=== PATIENT | male | born 1965 | race Hispanic/Latino ===

== ENCOUNTER 2020-07-21 22:15 | Inpatient (IN) | payer OTHER ==
[~2020-07-21] VITALS: Ht 170.2 cm; Wt 93.7 kg
[2020-07-21] MEDS ORDERED: IOHEXOL 350 MG/ML 100ML INFUS..BTL IV ONE (22:19)
[2020-07-21 22:26] LABS: BASOPHILS % (AUTO) 0.4 % (0.0-5.0); EOSINOPHILS % (AUTO) 0.8 % (0.0-8.0); HEMATOCRIT 45.8 % (42-54); LYMPHOCYTES % (AUTO) 28.8 % (21.0-51.0); MEAN CORPUSCULAR HEMOGLOBIN 30.4 pg (27.0-33.0); MEAN CORPUSCULAR HGB CONC 33.8 g/dL (32.0-36.0); MEAN CORPUSCULAR VOLUME 89.8 fL (79-99); MONOCYTES % (AUTO) 7.1 % (3.0-13.0); NEUTROPHILS % (AUTO) 61.8 % (40.0-77.0); PLATELET COUNT (AUTO) 204 K/uL (130-400); RED CELL DISTRIBUTION WIDTH 12.3 % (11.0-15.5); WHITE BLOOD COUNT (AUTO) 8.6 K/uL (4.8-10.8)
[2020-07-21 22:42] LABS: INR 0.93 (0.85-1.15); PARTIAL THROMBOPLASTIN TIME 21.3 SEC (26.3-35.5); PROTHROMBIN TIME 10.1 SEC (9.6-11.6)
[2020-07-21 22:45] LABS: CREATININE 1.2 mg/dL (0.5-1.5); POTASSIUM 3.7 mmol/L (3.5-5.1)
[2020-07-21 22:50] LABS: BILIRUBIN,TOTAL 0.4 mg/dL (0.2-1.0); TOTAL PROTEIN, SERUM 7.9 g/dL (6.0-8.3)
[2020-07-21 22:51] LABS: CREATINE KINASE, TOTAL 117 U/L (21-232); LIPASE 174 U/L (114-286)
[2020-07-21] MEDS ORDERED: MORPHINE SULFATE 2 MG/ML 1ML SYG ONE (22:54)
[2020-07-21] MEDS ORDERED: ONDANSETRON HCL 4 MG/2 ML VIAL ONE (22:54)
[2020-07-21 23:09] LABS: ALCOHOL, BLOOD < 3 mg/dL (0-10)
[2020-07-21] MEDS ORDERED: TETANUS/DIPHTHERIA TOXOID [ADULT] 0.5 ML VIAL IM ONE (23:35)
[2020-07-21] MEDS ORDERED: FENTANYL CITRATE PF 50 MCG/1 ML 2ML VIAL ONE (23:56)
[2020-07-22 00:25] LABS: APPEARANCE,URINE Clear (CLEAR); BILIRUBIN,URINE Negative (NEGATIVE); COLOR,URINE Yellow (YELLOW); GLUCOSE, URINE (UA) >=1000 mg/dL (NEGATIVE); KETONES,URINE Negative (NEGATIVE); LEUKOCYTE ESTERASE ,URINE Negative (NEGATIVE); NITRATE,URINE Negative (NEGATIVE); OCCULT BLOOD,URINE Negative (NEGATIVE); PROTEIN,URINE Trace mg/dL (NEGATIVE)
[2020-07-22 00:36] LABS: AMPHET/METH SCREEN,URINE NEGATIVE (NEGATIVE); BARBITURATE SCREEN, URINE NEGATIVE (NEGATIVE); BENZODIAZEPINES SCREEN,URINE NEGATIVE (NEGATIVE); CANNABINOID SCREEN,URINE NEGATIVE (NEGATIVE); COCAINE SCREEN,URINE NEGATIVE (NEGATIVE); OPIATE SCREEN,URINE NEGATIVE (NEGATIVE); PHENCYCLIDINE SCREEN,URINE NEGATIVE (NEGATIVE)
[2020-07-22] MEDS ORDERED: ZOLPIDEM TARTRATE 5 MG TAB PO PRN (01:00)
[2020-07-22] MEDS ORDERED: ONDANSETRON HCL 4 MG/2 ML VIAL IV PRN (01:00)
[2020-07-22] MEDS ORDERED: LACTULOSE 20 GM/30 ML UDCUP PO PRN (01:00)
[2020-07-22] MEDS ORDERED: ACETAMINOPHEN 325 MG TAB PO PRN ×2 (01:00)
[2020-07-22 02:40] LABS: BACTERIA,URINE Rare /HPF (None Seen); RBC,URINE 0-1 /HPF (0-1); SQUAMOUS EPITHELIAL CELL,UR 0-2 /HPF (0-2); WBC,URINE 0-1 /HPF (0-1)
[2020-07-22 02:41] LABS: MUCUS,URINE Few LPF (None Seen)
[2020-07-22] MEDS: INSULIN HUMULIN R 100 UNIT/ML 3ML SQ SCH ×4 (07:30→20:36)
[2020-07-22] MEDS ORDERED: INSULIN HUMULIN R 100 UNIT/ML 3ML ONE (08:53)
[2020-07-22] MEDS: ENOXAPARIN SODIUM 40 MG/0.4 ML SYRINGE SQ SCH (09:00)
[2020-07-22] MEDS ORDERED: ENOXAPARIN SODIUM 40 MG/0.4 ML SYRINGE SQ ONE (09:28)
[2020-07-22] MEDS ORDERED: FAMOTIDINE 20MG TAB 20 MG TAB ONE (09:28)
[2020-07-22 10:57] VITALS: BP 168/93
[2020-07-22] MEDS: FAMOTIDINE 20MG TAB 20 MG TAB PO SCH ×2 (12:13→20:34)
[2020-07-22 15:45] VITALS: BP 170/93
--- NOTE | 2020-07-22 16:08 | NUR ---
cm note met with patient and states resides at home with girlfriend Wanda Butler, is independent with ambulation/adls, no dme. [place] provided with [facility] in the area. rx assist info. pt verbalizes understanding. Addendum: 07/22/20 at 1633 by JOSE ALEJANDRO COFFMAN CM Amended: Links added.
[2020-07-22 16:13] LABS: BASOPHILS % (AUTO) 0.2 % (0.0-5.0); EOSINOPHILS % (AUTO) 0.1 % (0.0-8.0); HEMATOCRIT 45.3 % (42-54); LYMPHOCYTES % (AUTO) 14.4 % (21.0-51.0); MEAN CORPUSCULAR HEMOGLOBIN 30.7 pg (27.0-33.0); MEAN CORPUSCULAR HGB CONC 33.8 g/dL (32.0-36.0); MEAN CORPUSCULAR VOLUME 90.8 fL (79-99); MONOCYTES % (AUTO) 9.4 % (3.0-13.0); NEUTROPHILS % (AUTO) 75.5 % (40.0-77.0); PLATELET COUNT (AUTO) 187 K/uL (130-400); RED BLOOD CELL COUNT(AUTO) 4.99 MIL/uL (4.50-6.20); RED CELL DISTRIBUTION WIDTH 12.6 % (11.0-15.5); WHITE BLOOD COUNT (AUTO) 10.1 K/uL (4.8-10.8)
[2020-07-22 16:32] LABS: ALBUMIN 3.8 g/dL (3.5-5.0); BILIRUBIN,TOTAL 0.8 mg/dL (0.2-1.0); CREATININE 0.9 mg/dL (0.5-1.5); POTASSIUM 3.7 mmol/L (3.5-5.1); TOTAL PROTEIN, SERUM 7.8 g/dL (6.0-8.3)
[2020-07-22] MEDS ORDERED: SIMETHICONE 80 MG TAB.CHEW ONE (18:20)
[2020-07-22 20:01] VITALS: BP 160/92
[2020-07-22] MEDS: SIMETHICONE 40 MG/0.6 ML ML PO PRN (22:30)
[2020-07-22] MEDS: MORPHINE SULFATE 2 MG/ML 1ML SYG IV PRN (22:36)
[2020-07-22 23:35] VITALS: BP 160/90
[2020-07-23] VITALS (7 sets, daily range): BP systolic 134–164; BP diastolic 80–103
[2020-07-23 03:34] LABS: BASOPHILS % (AUTO) 0.1 % (0.0-5.0); HEMATOCRIT 44.9 % (42-54); LYMPHOCYTES % (AUTO) 9.4 % (21.0-51.0); MEAN CORPUSCULAR HEMOGLOBIN 30.3 pg (27.0-33.0); MEAN CORPUSCULAR HGB CONC 33.6 g/dL (32.0-36.0); MONOCYTES % (AUTO) 7.9 % (3.0-13.0); NEUTROPHILS % (AUTO) 82.2 % (40.0-77.0); PLATELET COUNT (AUTO) 178 K/uL (130-400); RED BLOOD CELL COUNT(AUTO) 4.99 MIL/uL (4.50-6.20); RED CELL DISTRIBUTION WIDTH 12.4 % (11.0-15.5); WHITE BLOOD COUNT (AUTO) 11.3 K/uL (4.8-10.8)
[2020-07-23 03:44] LABS: CREATININE 0.9 mg/dL (0.5-1.5); POTASSIUM 3.5 mmol/L (3.5-5.1)
[2020-07-23] MEDS: ENOXAPARIN SODIUM 40 MG/0.4 ML SYRINGE SQ SCH (08:51)
[2020-07-23] MEDS: FAMOTIDINE 20MG TAB 20 MG TAB PO SCH ×2 (08:51→20:28)
[2020-07-23] MEDS: INSULIN HUMULIN R 100 UNIT/ML 3ML SQ SCH ×4 (09:04→20:22)
[2020-07-23] MEDS: DOCUSATE SODIUM 100 MG CAP PO SCH ×2 (09:37→20:28)
[2020-07-23] MEDS: SIMETHICONE 40 MG/0.6 ML ML PO PRN (12:02)
[2020-07-23] MEDS ORDERED: IOHEXOL 350 MG/ML 100ML INFUS..BTL IV ONE (14:58)
[2020-07-23] MEDS: SODIUM CHLORIDE 0.9% 500ML 500 ML IV SCH ×4 (16:36→20:21)
[2020-07-24 03:41] VITALS: BP 148/90
[2020-07-24] MEDS: INSULIN HUMULIN R 100 UNIT/ML 3ML SQ SCH ×5 (06:22→20:51)
[2020-07-24 07:45] VITALS: BP 148/92
[2020-07-24] MEDS: FAMOTIDINE 20MG TAB 20 MG TAB PO SCH ×2 (08:30→19:57)
[2020-07-24] MEDS: DOCUSATE SODIUM 100 MG CAP PO SCH ×2 (08:30→19:57)
[2020-07-24] MEDS: ENOXAPARIN SODIUM 40 MG/0.4 ML SYRINGE SQ SCH (08:31)
[2020-07-24 11:00] VITALS: BP_SYST 131; BP_SYST 154; BP_DIAS 41; BP_DIAS 89
[2020-07-24 16:00] VITALS: BP 156/90
[2020-07-24 19:00] VITALS: BP 144/87
[2020-07-24] MEDS: LACTULOSE 20 GM/30 ML UDCUP PO SCH (19:57)
[2020-07-24] MEDS: INSULIN GLARGINE 100 UNITS/ML 10 ML VIAL SQ SCH (20:00)
[2020-07-24] MEDS: SIMETHICONE 40 MG/0.6 ML ML PO PRN (21:57)
[2020-07-24] MEDS ORDERED: MAGNESIUM HYDROXIDE 30 ML/UDCUP PO SCH (22:00)
[2020-07-25] VITALS: BP 151/89
[2020-07-25 04:00] VITALS: BP 149/90
[2020-07-25] MEDS: INSULIN HUMULIN R 100 UNIT/ML 3ML SQ SCH ×4 (05:18→22:13)
[2020-07-25 08:30] VITALS: BP 143/85
[2020-07-25] MEDS: FAMOTIDINE 20MG TAB 20 MG TAB PO SCH ×2 (08:48→22:10)
[2020-07-25] MEDS: DOCUSATE SODIUM 100 MG CAP PO SCH ×2 (08:48→22:10)
[2020-07-25] MEDS: LACTULOSE 20 GM/30 ML UDCUP PO SCH ×2 (08:48→22:10)
[2020-07-25] MEDS: ENOXAPARIN SODIUM 40 MG/0.4 ML SYRINGE SQ SCH (08:49)
[2020-07-25] MEDS: SENNOSIDES 8.6 MG TABLET PO SCH ×2 (08:49→22:11)
--- NOTE | 2020-07-25 11:21 | NUR ---
SPOKE TO PATIENT AT BEDSIDE FOR D/C PLANNING. JERONIMO WITH BROTHER, LUIS TO ASSIST NEEDE,- CHEERFUL, USING IS, WEARING SPLINT- BRANDIN Holloway MD, ABD DISTENDED, POSS ILEUS, PAUL TO FOLLOW Addendum: 07/25/20 at 1123 by JANES LEWIS RN CM Amended: Links added.
[2020-07-25 12:38] VITALS: BP 143/72
[2020-07-25] MEDS: MORPHINE SULFATE 2 MG/ML 1ML SYG IV PRN ×2 (16:05→22:14)
[2020-07-25 16:41] VITALS: BP 133/86
[2020-07-25 20:02] VITALS: BP 148/89
[2020-07-25] MEDS: INSULIN GLARGINE 100 UNITS/ML 10 ML VIAL SQ SCH (22:13)
[2020-07-26 00:01] VITALS: BP 139/90
[2020-07-26 04:12] VITALS: BP 130/80
[2020-07-26 04:31] LABS: BASOPHILS % (AUTO) 0.2 % (0.0-5.0); EOSINOPHILS % (AUTO) 0.3 % (0.0-8.0); HEMATOCRIT 47.9 % (42-54); LYMPHOCYTES % (AUTO) 19.2 % (21.0-51.0); MEAN CORPUSCULAR HEMOGLOBIN 29.9 pg (27.0-33.0); MEAN CORPUSCULAR VOLUME 90.5 fL (79-99); MONOCYTES % (AUTO) 8.3 % (3.0-13.0); NEUTROPHILS % (AUTO) 71.4 % (40.0-77.0); PLATELET COUNT (AUTO) 270 K/uL (130-400); RED BLOOD CELL COUNT(AUTO) 5.29 MIL/uL (4.50-6.20); RED CELL DISTRIBUTION WIDTH 12.3 % (11.0-15.5); WHITE BLOOD COUNT (AUTO) 8.7 K/uL (4.8-10.8)
[2020-07-26 04:56] LABS: ALBUMIN 3.3 g/dL (3.5-5.0); BILIRUBIN,TOTAL 0.9 mg/dL (0.2-1.0); CREATININE 0.8 mg/dL (0.5-1.5); TOTAL PROTEIN, SERUM 8.4 g/dL (6.0-8.3)
[2020-07-26 05:03] LABS: POTASSIUM 2.8 mmol/L (3.5-5.1)
[2020-07-26] MEDS ORDERED: POTASSIUM CHLORIDE 20 MEQ ERTAB PO PRN (05:15)
[2020-07-26] MEDS ORDERED: LIDOCAINE HCL-MPF 1% 2ML VIAL IJ PRN (05:15)
[2020-07-26] MEDS ORDERED: POTASSIUM CHLORIDE 10% ELIXIR 20 MEQ/15 ML UDCUP PO PRN (05:15)
[2020-07-26] MEDS ORDERED: POTASSIUM CHLORIDE 20MEQ/100ML 100 ML IV PRN (05:15)
[2020-07-26] MEDS ORDERED: MAGNESIUM 2GM PREMIX 50ML 50 ML IV PRN (05:15)
[2020-07-26] MEDS: INSULIN HUMULIN R 100 UNIT/ML 3ML SQ SCH ×3 (05:20→16:30)
[2020-07-26] MEDS: LACTULOSE 20 GM/30 ML UDCUP PO SCH (08:14)
[2020-07-26] MEDS: FAMOTIDINE 20MG TAB 20 MG TAB PO SCH (08:14)
[2020-07-26] MEDS: ENOXAPARIN SODIUM 40 MG/0.4 ML SYRINGE SQ SCH (08:14)
[2020-07-26] MEDS: DOCUSATE SODIUM 100 MG CAP PO SCH (08:14)
[2020-07-26] MEDS: SENNOSIDES 8.6 MG TABLET PO SCH (08:14)
[2020-07-26 08:30] VITALS: BP 148/91
[2020-07-26 11:47] VITALS: BP 138/90
[2020-07-26] MEDS ORDERED: KETO10TA2 PO (12:47)
[2020-07-26] MEDS ORDERED: ACET-66 PO (12:47)
[2020-07-26] MEDS ORDERED: POLY17PO4 PO (12:52)
[2020-07-26] MEDS ORDERED: POTASSIUM CHLORIDE 20 MEQ ERTAB PO SCH ×2 (13:00→16:30)
--- NOTE | 2020-07-26 16:05 | NUR ---
COMMUNITY RES[facility] PKT GIVEN TO PATIENT Addendum: 07/26/20 at 1941 by JANES LEWIS RN CM Amended: Links added.
[2020-07-26 16:51] VITALS: BP 130/88
== END 2020-07-26 20:00 | disposition home or self-care (01) | DRG 184 ==
LOC: EDH 22:15 → EDHIP 22:16 → 4BH 07-22 11:16
PROVIDERS: ADMIT Internal Medicine; ATTEND Internal Medicine
DX: S22.42XA Multiple fractures of ribs, left side, initial encounter for closed fracture (principal); J98.11 Atelectasis; S27.321A Contusion of lung, unilateral, initial encounter; J93.83 Other pneumothorax; Z20.828 Contact with and (suspected) exposure to other viral communicable diseases; K76.0 Fatty (change of) liver, not elsewhere classified; K57.30 Diverticulosis of large intestine without perforation or abscess without bleeding; E11.9 Type 2 diabetes mellitus without complications; S00.81XA Abrasion of other part of head, initial encounter; K59.00 Constipation, unspecified; S83.512A Sprain of anterior cruciate ligament of left knee, initial encounter; J98.2 Interstitial emphysema; S42.002A Fracture of unspecified part of left clavicle, initial encounter for closed fracture; V29.9XXA Motorcycle rider (driver) (passenger) injured in unspecified traffic accident, initial encounter; Y92.410 Unspecified street and highway as the place of occurrence of the external cause; V89.2XXA Person injured in unspecified motor-vehicle accident, traffic, initial encounter; Y93.89 Activity, other specified; Y99.8 Other external cause status; Z83.3 Family history of diabetes mellitus; Z82.49 Family history of ischemic heart disease and other diseases of the circulatory system
CPT/HCPCS: 36415; 70450; 71045; 71260; 72125; 73000; 73030; 73552; 73562; 73706; 73721; 74018; 74177; 80048; 80053; 80305; 81001; 82550; 82948; 83690; 83735; 84132; 84484; 85025; 85610; 85730; 87426; 90714; 93005; 97039; G0378; J1650; J1815; J2405; J3010; J3490; J7040; Q9967